=== PATIENT | female | born 1990 | race Caucasian/White ===

== ENCOUNTER 2018-05-12 15:10 | Emergency (ER) | payer OTHER ==
[~2018-05-12] VITALS: Ht 165.1 cm; Wt 72.6 kg
[~2018-05-12 15:10] MED LIST: IBUPROFEN 600600 M1 PO; NAPROSYN500 MG PO; NORCO 5-325 TA1 EACH PO; PHENERGAN 25 MG25 M1 PO; PRILOSEC40 MG PO; PROVENTIL HFA6.7 G1 INH; SPRINTEC1 EACH PO; ULTRAM 50MG TAB50 MG PO; XANAX 0.5 MG0.5 M1 PO; XANAX1 MG PO; ZOFRAN ODT4 MG PO; ZOFRAN4 MG PO
[2018-05-12] MEDS ORDERED: PRENATAL PO (15:56)
[2018-05-12 16:01] LABS: URINE BILIRUBIN NEGATIVE (Negative); URINE BLOOD 3+ (Negative); URINE GLUCOSE-RANDOM* NEGATIVE (Negative); URINE KETONES TRACE (Negative); URINE LEUKOCYTES-REFLEX TRACE (Negative); URINE NITRITE-REFLEX NEGATIVE (Negative); URINE PROTEIN (DIPSTICK) 1+ (Negative); URINE SPECIFIC GRAVITY >= 1.030 (1.005-1.035); URINE UROBILINOGEN 0.2 E.U./dl (0.2-1.0)
[2018-05-12 16:02] LABS: URINE CLARITY CLOUDY; URINE COLOR RED
[2018-05-12 16:05] LABS: CASTS None Seen /LPF (None Seen); CRYSTALS None Seen /LPF (None Seen); SQUAMOUS 0-3 Few /LPF (0-3); URINE RBC >20 Many /HPF (0-2); URINE WBC-REFLEX 0-5 Rare /HPF (0-5)
[2018-05-12 17:13] VITALS: BP 120/70
== END 2018-05-12 17:15 | disposition short-term general hospital (02) ==
LOC: ER 15:10
PROVIDERS: Emergency Medicine
DX: O46.93 Antepartum hemorrhage, unspecified, third trimester (principal); O26.893 Other specified pregnancy related conditions, third trimester; R10.9 Unspecified abdominal pain; Z3A.34 34 weeks gestation of pregnancy; Z87.891 Personal history of nicotine dependence